=== PATIENT | female | born 1960 | race Caucasian/White ===

== ENCOUNTER 2021-03-30 23:54 | Observation (INO) | payer MEDICARE, SELFPAY ==
[2021-03-31 01:33] VITALS: BMI 38.8
[2021-03-31 03:55] LABS: #Eosinphils 0.1 10x3/uL (0.0-0.5); #Monocytes 0.6 10x3/uL (0.0-1.1); %Basophils 0.3 % (0.0-2.0); %Eosinophils 0.9 % (0.0-6.0); %Lymphocytes 33.6 % (18.0-47.0); %Monocytes 7.1 % (0.0-10.0); %Neutrophils 57.9 % (40.0-75.0); Hemoglobin 13.6 g/dL (12.0-15.5); Mean Corpuscular HGB CONC 31.8 g/dL (32.0-36.0); Mean Corpuscular Hemoglobin 26.6 pg (27.0-33.0); Mean Corpuscular Volume 83.8 fl (81.6-98.3); Mean Platelet Volume 9.6 fl (7.4-10.4); Platelet Count 365 10x3/uL (150-450); RBC Distribution Width 13.7 % (11.5-14.5); Red Blood Cell (RBC) Count 5.11 10x6/uL (3.90-5.03); White Blood Cell (WBC) Count 8.7 10x3/uL (3.5-10.5)
[2021-03-31 04:17] LABS: Troponin I Less than 0.010 ng/mL (< 0.028)
[2021-03-31 04:20] LABS: Anion Gap 15 mmol/L (10-20); BUN (Urea Nitrogen) 10 mg/dL (9.8-20.1); Calc. Creatinine Clearance 96 mL/min (70-130); Calcium 9.8 mg/dL (7.8-10.44); Carbon Dioxide 27 mmol/L (22-29); Cardiac Risk 3.8 (Less than 4.5); Chloride 102 mmol/L (98-107); Cholesterol 143 mg/dl (< 200 Desired); Glucose 113 mg/dL (70-105); HDL Cholesterol 38 mg/dL (>60 Neg Risk); LDL Cholesterol, Calculated 65 mg/dL; Potassium 3.7 mmol/L (3.5-5.1); Sodium 140 mmol/L (136-145); Triglycerides 199 mg/dL (Less than 150)
[2021-03-31] MEDS ORDERED: clonazePAM 1 MG TAB PO PRN (05:38)
[2021-03-31] MEDS: Ondansetron PF 4 MG/2 ML Vial IVP PRN ×2 (06:01→13:40)
[2021-03-31 06:36] LABS: Troponin I Less than 0.010 ng/mL (< 0.028)
[2021-03-31] MEDS: Gabapentin 300 MG CAP PO SCH ×3 (07:49→20:41)
[2021-03-31] MEDS: Cholecalciferol 1,000 UNITS (25 MCG) TAB PO SCH (07:50)
[2021-03-31] MEDS: Fenofibrate 48 MG TAB PO SCH (07:51)
[2021-03-31] MEDS: Atorvastatin Calcium 40 MG TAB PO SCH (07:52)
[2021-03-31] MEDS: lamoTRIgine 100 MG TAB PO SCH (07:52)
[2021-03-31] MEDS ORDERED: Enoxaparin Sodium 40 MG/0.4 ML SYRINGE SC SCH (09:00)
[2021-03-31] MEDS ORDERED: Warfarin Sodium 2 MG TAB PO SCH (17:00)
[2021-03-31] MEDS: Enoxaparin Sodium 100 MG/ML SYRINGE SC SCH (20:41)
[2021-03-31] MEDS: traZODone HCl 150 MG TAB PO SCH (20:41)
[2021-04-01 04:15] LABS: INR-International Normal Ratio 1.2; Prothrombin Time 12.9 sec (9.5-12.1)
[2021-04-01] MEDS: lamoTRIgine 100 MG TAB PO SCH (07:36)
[2021-04-01] MEDS: Fenofibrate 48 MG TAB PO SCH (07:37)
[2021-04-01] MEDS: Atorvastatin Calcium 40 MG TAB PO SCH (07:37)
[2021-04-01] MEDS: Gabapentin 300 MG CAP PO SCH ×3 (07:37→20:42)
[2021-04-01] MEDS: Cholecalciferol 1,000 UNITS (25 MCG) TAB PO SCH (07:38)
[2021-04-01] MEDS: Enoxaparin Sodium 100 MG/ML SYRINGE SC SCH ×2 (07:39→20:41)
[2021-04-01] MEDS: Ondansetron PF 4 MG/2 ML Vial IVP PRN (10:57)
[2021-04-01] MEDS: clonazePAM 1 MG TAB PO PRN (16:01)
[2021-04-01] MEDS: Warfarin Sodium 2 MG TAB PO SCH (16:02)
[2021-04-01] MEDS ORDERED: Warfarin Sodium 2 MG TAB PO SCH (17:00)
[2021-04-01] MEDS: traZODone HCl 150 MG TAB PO SCH (20:41)
[2021-04-02 05:22] LABS: INR-International Normal Ratio 1.8; Prothrombin Time 19.7 sec (9.5-12.1)
[2021-04-02] MEDS: Enoxaparin Sodium 100 MG/ML SYRINGE SC SCH ×2 (08:09→20:40)
[2021-04-02] MEDS: Cholecalciferol 1,000 UNITS (25 MCG) TAB PO SCH (08:10)
[2021-04-02] MEDS: Gabapentin 300 MG CAP PO SCH ×3 (08:11→20:40)
[2021-04-02] MEDS: Atorvastatin Calcium 40 MG TAB PO SCH (08:12)
[2021-04-02] MEDS: Fenofibrate 48 MG TAB PO SCH (08:12)
[2021-04-02] MEDS: lamoTRIgine 100 MG TAB PO SCH (08:12)
[2021-04-02] MEDS: Ondansetron PF 4 MG/2 ML Vial IVP PRN (12:20)
[2021-04-02] MEDS: clonazePAM 1 MG TAB PO PRN (15:19)
[2021-04-02] MEDS: Warfarin Sodium 2 MG TAB PO SCH (18:31)
[2021-04-02] MEDS: traZODone HCl 150 MG TAB PO SCH (20:40)
[2021-04-03 05:51] LABS: INR-International Normal Ratio 2.1; Prothrombin Time 22.5 sec (9.5-12.1)
[2021-04-03] MEDS: Gabapentin 300 MG CAP PO SCH ×2 (07:21→14:35)
[2021-04-03] MEDS: Atorvastatin Calcium 40 MG TAB PO SCH (07:22)
[2021-04-03] MEDS: Cholecalciferol 1,000 UNITS (25 MCG) TAB PO SCH (07:23)
[2021-04-03] MEDS: Fenofibrate 48 MG TAB PO SCH (07:24)
[2021-04-03] MEDS: lamoTRIgine 100 MG TAB PO SCH (07:25)
[2021-04-03] MEDS: Enoxaparin Sodium 100 MG/ML SYRINGE SC SCH (07:25)
[2021-04-03 11:40] VITALS: BP 118/76
[2021-04-03] MEDS: clonazePAM 1 MG TAB PO PRN (14:35)
[2021-04-03 15:34] LABS: INR-International Normal Ratio 2.5
[2021-04-03] MEDS: Warfarin Sodium 2 MG TAB PO SCH (16:03)
[2021-04-03 16:27] VITALS: TEMP 98.2
== END 2021-04-03 18:09 | disposition home or self-care (01) ==
LOC: CSHTELE 03-31 01:25
PROVIDERS: ADMIT Family Medicine; ATTEND Internal Medicine
DX: R06.00 Dyspnea, unspecified (principal); Z95.2 Presence of prosthetic heart valve; Z79.01 Long term (current) use of anticoagulants; K21.9 Gastro-esophageal reflux disease without esophagitis; M79.7 Fibromyalgia; Z79.899 Other long term (current) drug therapy; G47.00 Insomnia, unspecified; Z87.891 Personal history of nicotine dependence; Z86.711 Personal history of pulmonary embolism; F32.A Depression, unspecified; E66.9 Obesity, unspecified; Z68.30 Body mass index [BMI] 30.0-30.9, adult; Z86.79 Personal history of other diseases of the circulatory system
CPT/HCPCS: 80048; 80061; 83735; 84484 ×2; 85025; 85610 ×4; 85730; 90732; 93005; 96372 ×4; 96374; 96376 ×3; G0009; G0378 ×4; 36415; 90471; 93010; J1650; J2405